=== PATIENT | female | born 1930 | race American Indian/Alaskan Native ===

== ENCOUNTER 2018-09-24 10:03 | Inpatient (IN) | payer MEDICARE ==
--- NOTE | 2018-09-24 10:07 | Emergency Department Report ---
HPI - General Time Seen by Provider: 09/24/18 10:06 - HPI HPI: Charge nurse triage/ Room 2 Patient's age 71-year-old female presenting with a chief complaint altered mental status. The patient reportedly came from adult daycare with report of left-sided weakness. Upon arrival to the ED the patient was found by the tele- neurologist to have shaking of the left upper extremity. Patient reported to have had a generalized tonic-clonic seizure in triage and is postictal at the time of my exam. 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 - Surgical History Additional Surgical History: "Brain tumor" removal 2001 - Family History Family history: no significant - Social History Smoking Status: Never Smoker Substance Use Type: None ED Review of Systems ROS: Stated complaint: AMS/POSSIBLE STROKE Other details as noted in HPI Comment: Unobtainable due to pts medical conditions Physical Exam - Physical Exam Vital Signs: Laboratory Tests 09/24/18 09/24/18 09/24/18 10:19 10:19 10:19 WBC 4.5 RBC 3.62 L Hgb 11.9 Hct 35.4 MCV 98 H MCH 33 H MCHC 34 RDW 13.4 Plt Count 188 Lymph % (Auto) 23.9 [place] % (Auto) 7.7 H Eos % (Auto) 2.5 Baso % (Auto) 0.9 Lymph # 1.1 L [place] # 0.3 Eos # 0.1 Baso # 0.0 Seg Neutrophils % 65.0 Seg Neutrophils # 2.9 PT 25.7 H INR 2.40 H APTT 30.4 Thrombin Time Sodium 141 Potassium 4.4 Chloride 103.4 Carbon Dioxide 21 L Anion Gap 21 BUN 13 Creatinine 1.3 H Estimated GFR 47 BUN/Creatinine Ratio 10 Glucose 128 H POC Glucose Calcium 9.7 Troponin T < 0.010 09/24/18 09/24/18 10:19 10:50 WBC RBC Hgb Hct MCV MCH MCHC RDW Plt Count Lymph % (Auto) [place] % (Auto) Eos % (Auto) Baso % (Auto) Lymph # [place] # Eos # Baso # Seg Neutrophils % Seg Neutrophils # PT INR APTT Thrombin Time 17.6 Sodium Potassium Chloride Carbon Dioxide Anion Gap BUN Creatinine Estimated GFR BUN/Creatinine Ratio Glucose POC Glucose 144 H Calcium Troponin T Physical Exam: GENERAL: The patient is well-developed well-nourished female lying on stretcher not appearing to be in acute distress. Stick to HEENT: Normocephalic. Atraumatic. Pupils 2 mm bilaterally NECK: Supple. Trachea midline CHEST/LUNGS: Clear to auscultation. There is no respiratory distress noted. HEART/CARDIOVASCULAR: Regular. There is no tachycardia. There is no gallop rub or murmur. ABDOMEN: Abdomen is soft, nontender. Patient has normal bowel sounds. There is no abdominal distention. SKIN: There is no rash. There is no edema. There is no diaphoresis. NEURO: The patient is postictal and unable to perform neurologic exam MUSCULOSKELETAL: There is no evidence of acute injury. ED Medical Decision Making - Lab Data Result diagrams: 09/24/18 10:19 09/24/18 10:19 - EKG Data -: EKG Interpreted by Me (EMS EKG) EKG shows normal: sinus rhythm Rate: normal - EKG Data When compared to previous EKG there are: previous EKG unavailable Interpretation: other (no ischemic changes seen) - Radiology Data Radiology results: report reviewed (CT head), image reviewed (CT head) [facility] [address] [place] [address] Cat Scan Report Signed Patient: ABRIL DUMONT MR#: [id number] : 1930 Acct:[id number] Age/Sex: 88 / F ADM Date: 09/24/18 Loc: ED Attending Dr: Ordering Physician: GIGI DELAROSA MD Date of Service: 09/24/18 Procedure(s): CT head/brain wo con Accession Number(s): [id number] cc: GIGI DELAROSA MD CT HEAD WITHOUT CONTRAST: HISTORY: Neuro deficits less than 6 hours or symptoms present upon waking, stroke. TECHNIQUE: Sequential CT images without contrast. FINDINGS: No comparison. Previous right craniotomy changes are identified. There is a large area of encephalomalacia throughout the posterior right frontal lobe suggesting previous surgery or trauma. Advanced volume loss and chronic white matter changes are also identified. No evidence for hemorrhage, mass, mass effect or extra axial fluid collection. The posterior fossa contents are unremarkable. The visualized sinuses and mastoid air cells are well-aerated. IMPRESSION: Chronic findings as detailed above. No acute intracranial process is identified. These findings were discussed with Dr. Delarosa in the emergency department at 1018 hrs. Transcribed By: TTR Dictated By: MIRIAM KELLY JR, MD Electronically Authenticated By: MIRIAM KELLY JR, MD Signed Date/Time: 09/24/18 1022 DD/ 1020 TD/TT: 09/24/18 1022 - Differential Diagnosis status epilepticus Critical care attestation.: If time is entered above; I have spent that time in minutes in the direct care of this critically ill patient, excluding procedure time. ED Disposition Clinical Impression: Status epilepticus Disposition: OP ADMIT IP TO THIS HOSP Is pt being admited?: Yes Does the pt Need Aspirin: Yes Condition: Fair Time of Disposition: 11:03 (hospitalist paged (Dr Ely))
[2018-09-24] MEDS ORDERED: ACTIVASE ONE (10:11)
[2018-09-24] MEDS ORDERED: ATIVAN IV ONE ×2 (10:20→10:23)
[2018-09-24] MEDS ORDERED: ATIVAN ONE ×2 (10:21→10:23)
[2018-09-24] MEDS: ASPIRIN PO ONE (10:23)
--- NOTE | 2018-09-24 10:27 | Cat Scan Report ---
CT HEAD WITHOUT CONTRAST: HISTORY: Neuro deficits less than 6 hours or symptoms present upon waking, stroke. TECHNIQUE: Sequential CT images without contrast. FINDINGS: No comparison. Previous right craniotomy changes are identified. There is a large area of encephalomalacia throughout the posterior right frontal lobe suggesting previous surgery or trauma. Advanced volume loss and chronic white matter changes are also identified. No evidence for hemorrhage, mass, mass effect or extra axial fluid collection. The posterior fossa contents are unremarkable. The visualized sinuses and mastoid air cells are well-aerated. IMPRESSION: Chronic findings as detailed above. No acute intracranial process is identified. These findings were discussed with Dr. Matias in the emergency department at 1018 hrs.
[2018-09-24 10:30] LABS: Basophils % (Auto) 0.9 % (0.0-1.8); Eosinophils # (Auto) 0.1 K/mm3 (0.0-0.4); Eosinophils % (Auto) 2.5 % (0.0-4.3); Hematocrit 35.4 % (30.3-42.9); Hemoglobin 11.9 gm/dl (10.1-14.3); Lymphocytes # (Auto) 1.1 K/mm3 (1.2-5.4); Lymphocytes % (Auto) 23.9 % (13.4-35.0); Mean Corpuscular HGB Conc 34 % (30-34); Mean Corpuscular Volume 98 fl (79-97); Monocytes # (Auto) 0.3 K/mm3 (0.0-0.8); Monocytes % (Auto) 7.7 % (0.0-7.3); Platelet Count 188 K/mm3 (140-440); Red Blood Count 3.62 M/mm3 (3.65-5.03); Red Cell Distribution Width 13.4 % (13.2-15.2)
[2018-09-24] MEDS ORDERED: KEPPRA 1,500 MG in D5W 100 ML IV ONE (10:30)
[2018-09-24 10:39] LABS: INR 2.4 (0.87-1.13)
[2018-09-24 10:40] LABS: Partial Thromboplastin Time 30.4 Sec. (24.2-36.6)
[2018-09-24 10:52] LABS: BUN/Creatinine Ratio 10; Blood Urea Nitrogen 13 mg/dL (7-17); Calcium 9.7 mg/dL (8.4-10.2); Hemolysis Index 2
--- NOTE | 2018-09-24 10:55 | Emergency Department Report ---
ED Neuro Deficit HPI - General Chief Complaint: Neuro Symptoms/Deficit Stated Complaint: AMS/POSSIBLE STROKE Time Seen by Provider: 09/24/18 10:06 Source: EMS Mode of arrival: Ambulatory Limitations: No Limitations - History of Present Illness Initial Comments: [facility] TeleNeurology Consult Services Impression: seizure. Frontal frontal focus. Now post ictal with worsened left sided weakness. Not a tpa candidate due to: seizure Does not meet LVO screening criteria (no aphasia, neglect, gaze deviation, dense hemiparesis, visual field deficits on exam); therefore, advanced imaging not recommended. Comments: [facility] contacted: [phone] [facility] at bedside: 1000 NIHSS assessment time: 1015 Recommendations: Ativan 2mg iv x 2 given with resolution of seizures Keppra 1500mg iv ordered to be given stat now Seizure precautions Telemetry Admit to icu Iv fluids ns inpatient neurology consultation Inpatient evaluation as per Neurology/ Internal Medicine Discussed with ED MD CC seizures History of Present Illness Patient is a 88 year old woman who was brought to the Ed for seizures. She was last seen at 930 normal and then started to have left arm clonic movements. 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 She takes low dose Tegretol for seizure control. She takes coumadin daily. Diagnostic: Ct head without contrast: right craniotomy site with right frontal encephalomalacia, no acute signs of stroke, per my read Medical Decision Making: - Extensive number of diagnosis or management options are considered above. - Extensive amount of complex data reviewed. - High risk of complication and/or morbidity or mortality are associated with differential diagnostic considerations above. - There may be Uncertain outcome and increased probability of prolonged functional impairment or high probability of severe prolonged functional impairment associated with some of these differential diagnosis. Medical Data Reviewed: 1.Data reviewed include clinical labs, radiology, Medical Tests; 2.Tests results discussed w/performing or interpreting physician; 3.Obtaining/reviewing old medical records; 4.Obtaining case history from another source; 5.Independent review of image, tracing or specimen. Patient was informed the Neurology Consult would happen via telehealth (remote video) and consented to receiving care in this manner. - Related Data Allergies/Adverse Reactions: Allergies Allergy/AdvReac Type Severity Reaction Status Date / Time No Known Allergies Allergy Unverified 09/24/18 10:10 ED Review of Systems ROS: Stated complaint: AMS/POSSIBLE STROKE Other details as noted in HPI ED Past Medical Hx - Past Medical History Previous Medical History?: Yes Hx Hypertension: Yes Hx CVA: Yes (residual R sided weakess) - Surgical History Past Surgical History?: No - Social History Smoking Status: Unknown if ever smoked Substance Use Type: None ED Neuro Physical Exam - General Limitations: No Limitations Suspected Stroke: No - NIHSS Assessment Interval: Baseline 1a. Level of Consciousness: resp stimuli/obtunded 1b. LOC Questions: answers no questions correctly 1c. LOC Commands: performs no tasks correctly 2. Best Gaze: normal 3. Visual: no visual loss 4. Facial Palsy: minor paralysis 5b. Motor Arm Right: some gravity effort 5a. Motor Arm Left: some gravity effort 6a. Motor Leg Left: some gravity effort 6b. Motor Leg Right: some gravity effort 7. Limb Ataxia: absent 8. Sensory: normal 9. Best Language: coma/unresponsive 10. Dysarthria: mute/anarrthric 11. Extinction/Inattention: no abnormality Total Score: 20 Stroke Severity: Moderate to Severe Stroke - Lab Data Result diagrams: 09/24/18 10:19 09/24/18 10:19 Lab Results 09/24/18 09/24/18 09/24/18 Range/Units 10:19 10:19 10:19 WBC 4.5 (4.5-11.0) K/mm3 RBC 3.62 L (3.65-5.03) M/mm3 Hgb 11.9 (10.1-14.3) gm/dl Hct 35.4 (30.3-42.9) % MCV 98 H (79-97) fl MCH 33 H (28-32) pg MCHC 34 (30-34) % RDW 13.4 (13.2-15.2) % Plt Count 188 (140-440) K/mm3 Lymph % (Auto) 23.9 (13.4-35.0) % [place] % (Auto) 7.7 H (0.0-7.3) % Eos % (Auto) 2.5 (0.0-4.3) % Baso % (Auto) 0.9 (0.0-1.8) % Lymph # 1.1 L (1.2-5.4) K/mm3 [place] # 0.3 (0.0-0.8) K/mm3 Eos # 0.1 (0.0-0.4) K/mm3 Baso # 0.0 (0.0-0.1) K/mm3 Seg Neutrophils % 65.0 (40.0-70.0) % Seg Neutrophils # 2.9 (1.8-7.7) K/mm3 PT 25.7 H (12.2-14.9) Sec. INR 2.40 H (0.87-1.13) APTT 30.4 (24.2-36.6) Sec. Thrombin Time (15.1-19.6) Sec. Sodium 141 (137-145) mmol/L Potassium 4.4 (3.6-5.0) mmol/L Chloride 103.4 (98-107) mmol/L Carbon Dioxide 21 L (22-30) mmol/L Anion Gap 21 mmol/L BUN 13 (7-17) mg/dL Creatinine 1.3 H (0.7-1.2) mg/dL Estimated GFR 47 ml/min BUN/Creatinine Ratio 10 % Glucose 128 H (65-100) mg/dL POC Glucose (70-105) Calcium 9.7 (8.4-10.2) mg/dL Troponin T < 0.010 (0.00-0.029) ng/mL 09/24/18 09/24/18 Range/Units 10:19 10:50 WBC (4.5-11.0) K/mm3 RBC (3.65-5.03) M/mm3 Hgb (10.1-14.3) gm/dl Hct (30.3-42.9) % MCV (79-97) fl MCH (28-32) pg MCHC (30-34) % RDW (13.2-15.2) % Plt Count (140-440) K/mm3 Lymph % (Auto) (13.4-35.0) % [place] % (Auto) (0.0-7.3) % Eos % (Auto) (0.0-4.3) % Baso % (Auto) (0.0-1.8) % Lymph # (1.2-5.4) K/mm3 [place] # (0.0-0.8) K/mm3 Eos # (0.0-0.4) K/mm3 Baso # (0.0-0.1) K/mm3 Seg Neutrophils % (40.0-70.0) % Seg Neutrophils # (1.8-7.7) K/mm3 PT (12.2-14.9) Sec. INR (0.87-1.13) APTT (24.2-36.6) Sec. Thrombin Time 17.6 (15.1-19.6) Sec. Sodium (137-145) mmol/L Potassium (3.6-5.0) mmol/L Chloride (98-107) mmol/L Carbon Dioxide (22-30) mmol/L Anion Gap mmol/L BUN (7-17) mg/dL Creatinine (0.7-1.2) mg/dL Estimated GFR ml/min BUN/Creatinine Ratio % Glucose (65-100) mg/dL POC Glucose 144 H (70-105) Calcium (8.4-10.2) mg/dL Troponin T (0.00-0.029) ng/mL Critical care attestation.: If time is entered above; I have spent that time in minutes in the direct care of this critically ill patient, excluding procedure time. ED Disposition Clinical Impression: Status epilepticus Disposition: OP ADMIT IP TO THIS HOSP Is pt being admited?: Yes Condition: Stable
--- NOTE | 2018-09-24 15:13 | History and Physical Report ---
History of Present Illness Date of examination: 09/24/18 Date of admission: 09/24/18 11:13 Medications and Allergies Allergies Allergy/AdvReac Type Severity Reaction Status Date / Time No Known Allergies Allergy Unverified 09/24/18 10:10 Home Medications Medication Instructions Recorded Confirmed Last Taken Type Acetaminophen [Tylenol] 500 mg PO BID 09/24/18 09/24/18 09/24/18 History Lovastatin [Altoprev] 20 mg PO QPM 09/24/18 09/24/18 09/23/18 History Nebivolol HCl [Bystolic] 10 mg PO QAM 09/24/18 09/24/18 09/24/18 History Warfarin [Coumadin] 5 mg PO QPM 09/24/18 09/24/18 09/23/18 History carBAMazepine XR [TEGretol Xr] 100 mg PO QAM 09/24/18 09/24/18 09/24/18 History Exam - Constitutional Vitals: Temp Pulse Resp BP Pulse Ox 98.4 F 62 16 168/63 100 09/24/18 11:13 09/24/18 13:01 09/24/18 13:01 09/24/18 13:31 09/24/18 13:31 Results - Labs CBC & Chem 7: 09/24/18 10:19 09/24/18 10:19 Labs: Abnormal lab results 09/24/18 09/24/18 09/24/18 Range/Units 10:19 10:19 10:19 RBC 3.62 L (3.65-5.03) M/mm3 MCV 98 H (79-97) fl MCH 33 H (28-32) pg [place] % (Auto) 7.7 H (0.0-7.3) % Lymph # 1.1 L (1.2-5.4) K/mm3 PT 25.7 H (12.2-14.9) Sec. INR 2.40 H (0.87-1.13) Carbon Dioxide 21 L (22-30) mmol/L Creatinine 1.3 H (0.7-1.2) mg/dL Glucose 128 H (65-100) mg/dL POC Glucose (70-105) 09/24/18 Range/Units 10:50 RBC (3.65-5.03) M/mm3 MCV (79-97) fl MCH (28-32) pg [place] % (Auto) (0.0-7.3) % Lymph # (1.2-5.4) K/mm3 PT (12.2-14.9) Sec. INR (0.87-1.13) Carbon Dioxide (22-30) mmol/L Creatinine (0.7-1.2) mg/dL Glucose (65-100) mg/dL POC Glucose 144 H (70-105)
[2018-09-24] MEDS ORDERED: DILAUDID ONE (17:13)
[2018-09-24] MEDS: DILAUDID IV PRN (17:31)
[2018-09-24] MEDS ORDERED: APRESOLINE ONE (18:04)
[2018-09-24] MEDS ORDERED: APRESOLINE IV ONE (18:05)
[2018-09-24] MEDS ORDERED: COUMADIN PO SCH (22:00)
[2018-09-24] MEDS ORDERED: PRAVACHOL PO SCH (22:00)
[2018-09-24] MEDS ORDERED: NACL 0.9% 1000 ML 1,000 ML ONE (22:59)
[2018-09-24] MEDS: KEPPRA 1,000 MG in D5W 100 ML IV SCH (23:00)
[2018-09-24] MEDS: NACL 0.9% 1000 ML 1,000 ML IV SCH (23:00)
[2018-09-24] MEDS: TYLENOL PO SCH (23:09)
--- NOTE | 2018-09-25 06:35 | Event Note ---
Date: 09/24/18 Please H/p in reports Status epilepticus
[2018-09-25] MEDS: KEPPRA 1,000 MG in D5W 100 ML IV SCH ×2 (09:39→23:06)
[2018-09-25] MEDS ORDERED: TOPROL XL PO SCH (10:00)
[2018-09-25] MEDS ORDERED: NON-FORMULARY (Nebivolol Hcl [Bystolic] 10 MG) PO SCH (10:00)
--- NOTE | 2018-09-25 10:03 | History and Physical Report ---
CHIEF COMPLAINT: Continued seizures. HISTORY OF PRESENT ILLNESS: An 88-year-old female brought in for altered mental status from [facility]. Complains of left-sided weakness. Also shaking of the left upper extremity continuously. The patient had a generalized tonic-clonic seizure in the triage area and was postictal at the time of my exam. No fever or chills. The patient had a brain tumor removal in 2001 with residual weakness on the left side. The patient has history of seizures. The patient is on Tegretol for seizures. Not on Keppra. PAST MEDICAL HISTORY: Significant for hypertension, seizures, left-sided weakness after the brain tumor removal in 2001. SURGICAL HISTORY: Brain tumor removal in 2001. FAMILY HISTORY: No significant family history. SOCIAL HISTORY: Does not smoke. Daughter is supportive. REVIEW OF SYSTEMS: Significant for recurrent seizures and left-sided weakness and altered sensorium. Otherwise, review of systems negative. PHYSICAL EXAMINATION: GENERAL: Elderly female, lethargic, altered sensorium. VITAL SIGNS: Temperature 98.2, pulse is 93, respiratory rate is 27, blood pressure is 187/76. HEENT: Unremarkable. Pupils are equal and reactive. NECK: Supple, no lymphadenopathy, no thyromegaly. LUNGS: Clear to auscultation and percussion. Good air entry. CARDIOVASCULAR: S1, S2 heard. No gallop, no murmur, no rub. Apical impulse in left fifth intercostal space and midclavicular line. ABDOMEN: Soft and benign. No hepatosplenomegaly. No guarding, no rigidity. Hernial orifices are normal. EXTREMITIES: Left upper extremity weakness and left lower extremity weakness present, 4/5 power present. CENTRAL NERVOUS SYSTEM: Lethargic. Returning to baseline during my examination. Trying to sleep. Postictal state. SKIN: Normal. LABORATORY DATA: Significant for a white count of 4500, H and H of 11.9 and 35.4, platelet count of 188,000. INR is 2.4. Electrolytes are normal, creatinine is 1.3, glucose is 120. CAT scan of the head shows chronic findings of previous right craniotomy changes and large area of encephalomalacia throughout the posterior right frontal lobe suggesting. Advanced volume loss and chronic white matter changes. ASSESSMENT AND PLAN: 1. Status epilepticus. The patient initiated on intravenous Keppra 1000, q.12 and carbamazepine dosage adjusted upwards. The patient was given a loading dose of Keppra 1500 mg in the Emergency Room on the suggestion of tele neurologist. Ativan given as p.r.n. 2. Anticoagulation. Continue Coumadin. 3. Hypertension. Continue Bystolic 10 mg daily. 4. Hyperlipidemia. Continue lovastatin. 5. Deep venous thrombosis prophylaxis. Lovenox 30 mg subcutaneous daily. 6. Acute kidney injury. Intravenous fluids.Sec to vasomotor nephropathy. JOB# [id number] BELINDA/SIENNA JOLLYD
[2018-09-25 10:10] LABS: INR 2.41 (0.87-1.13)
[2018-09-25] MEDS: TYLENOL PO SCH ×2 (10:53→23:07)
[2018-09-25] MEDS: NACL 0.9% 1000 ML 1,000 ML IV SCH (14:41)
[2018-09-25] MEDS ORDERED: KEPPRA PO SCH (15:00)
[2018-09-25] MEDS ORDERED: COUMADIN PO SCH (17:00)
[2018-09-25] MEDS: CATAPRES-TTS PATCH TD SCH (17:50)
[2018-09-25] MEDS ORDERED: NON-FORMULARY (Lovastatin [Altoprev] 20 MG) PO SCH (18:00)
--- NOTE | 2018-09-25 22:03 | Progress Note ---
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 Had also generalized chronic chronic seizure and is trying to area associated with him post icterus. No fever no chills. Had excision of right-sided brain tumor in 2001. Has been only on Tegretol. My supervision was given loading dose of 1500 of Keppra. Admitted for further evaluation and management. 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 INR is therapeutic for now. Hold Lovenox continue with SCDs. Commence Pepcid Subjective Date of service: 09/25/18 Principal diagnosis: status epilepticus, hypertension, hyperlipidemia, acute kidney injury. Interval history: Patient seen and examined. No distress. No further seizure activity Objective - Exam Narrative Exam: Constitutional: Well-nourished well-developed. In no distress Head: Normocephalic atraumatic Eyes: Pupils are equal round and reactive to light Nose: No enlarged turbinates, no septal deviation. Mouth: Moist mucous membranes. Neck: Supple no thyromegaly. No bruit. No JVD Heart: Regular rate and rhythm, S1-S2 normal. No rubs murmurs or gallop Lungs: Clear to auscultation bilaterally. no rales or rhonchi Abdomen: Soft, nontender. Bowel sound are present. Extremities: No edema, no cyanosis, no clubbing. Neuro: Alert oriented Oriented x3. No focal sensory or motor deficit. Skin: No rashes or hyperpigmented spots Musculoskeletal system: No joint pain or swelling Hematological: No petechia or subcutanous hemorrhages. Immunological: No multiple septic spots on the skin Lymphatic: No generalized lymphadenopathy Psychiatry: Euthymic. Calm. - Constitutional Vitals: Vital Signs - 12hr 09/25/18 09/25/18 09/25/18 10:42 12:23 17:16 Temperature 98.0 F 99.3 F Pulse Rate 71 79 Respiratory 20 20 Rate Blood Pressure 165/59 160/62 O2 Sat by Pulse 100 100 88 Oximetry 09/25/18 09/25/18 17:50 21:19 Temperature Pulse Rate 79 Respiratory Rate Blood Pressure 160/62 O2 Sat by Pulse 92 Oximetry - Labs CBC & Chem 7: 09/24/18 10:19 09/24/18 10:19 Labs: Abnormal lab results 09/25/18 Range/Units 08:18 PT 25.8 H (12.2-14.9) Sec. INR 2.41 H (0.87-1.13)
[2018-09-25] MEDS: LOVENOX SUB-Q SCH (23:06)
[2018-09-26 06:58] LABS: Basophils # (Auto) 0.1 K/mm3 (0.0-0.1); Eosinophils # (Auto) 0.1 K/mm3 (0.0-0.4); Eosinophils % (Auto) 2.1 % (0.0-4.3); Hemoglobin 10.6 gm/dl (10.1-14.3); Lymphocytes # (Auto) 0.7 K/mm3 (1.2-5.4); Lymphocytes % (Auto) 12.4 % (13.4-35.0); Mean Corpuscular HGB Conc 34 % (30-34); Mean Corpuscular Volume 96 fl (79-97); Monocytes # (Auto) 0.5 K/mm3 (0.0-0.8); Monocytes % (Auto) 9.6 % (0.0-7.3); Platelet Count 162 K/mm3 (140-440); Red Blood Count 3.22 M/mm3 (3.65-5.03)
[2018-09-26 07:10] LABS: INR 2.44 (0.87-1.13)
[2018-09-26 07:41] LABS: Albumin 3.2 g/dL (3.9-5); Calcium 9.2 mg/dL (8.4-10.2)
--- NOTE | 2018-09-26 09:43 | Progress Note ---
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 Had also generalized chronic chronic seizure and is trying to area associated with him post icterus. No fever no chills. Had excision of right-sided brain tumor in 2001. Has been only on Tegretol. My supervision was given loading dose of 1500 of Keppra. Admitted for further evaluation and management. 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 INR is therapeutic for now. Hold Lovenox continue with SCDs. Commence Pepcid Subjective Date of service: 09/26/18 Principal diagnosis: status epilepticus, hypertension, hyperlipidemia, acute kidney injury. Interval history: Patient seen and examined. No distress. No further seizure activity. Lying quietly in bed Objective - Exam Narrative Exam: Constitutional: Well-nourished well-developed. In no distress Head: Normocephalic atraumatic Eyes: Pupils are equal round and reactive to light Nose: No enlarged turbinates, no septal deviation. Mouth: Moist mucous membranes. Neck: Supple no thyromegaly. No bruit. No JVD Heart: Regular rate and rhythm, S1-S2 normal. No rubs murmurs or gallop Lungs: Clear to auscultation bilaterally. no rales or rhonchi Abdomen: Soft, nontender. Bowel sound are present. Extremities: No edema, no cyanosis, no clubbing. Neuro: Alert oriented Oriented x3. No focal sensory or motor deficit. Skin: No rashes or hyperpigmented spots Musculoskeletal system: No joint pain or swelling Hematological: No petechia or subcutanous hemorrhages. Immunological: No multiple septic spots on the skin Lymphatic: No generalized lymphadenopathy Psychiatry: Euthymic. Calm. - Constitutional Vitals: Vital Signs - 12hr 09/25/18 09/25/18 09/26/18 23:00 23:39 02:04 Temperature 100.0 F H Pulse Rate 90 Respiratory 18 20 Rate Blood Pressure 162/89 175/69 O2 Sat by Pulse 100 91 Oximetry 09/26/18 09/26/18 06:09 08:36 Temperature 99.9 F H Pulse Rate 83 Respiratory 20 Rate Blood Pressure 161/57 O2 Sat by Pulse 88 93 Oximetry - Labs CBC & Chem 7: 09/26/18 06:10 09/26/18 06:40 Labs: Abnormal lab results 09/25/18 09/26/18 09/26/18 Range/Units 08:18 06:10 06:40 RBC 3.22 L (3.65-5.03) M/mm3 MCH 33 H (28-32) pg RDW 13.0 L (13.2-15.2) % Lymph % (Auto) 12.4 L (13.4-35.0) % [place] % (Auto) 9.6 H (0.0-7.3) % Lymph # 0.7 L (1.2-5.4) K/mm3 Seg Neutrophils % 74.9 H (40.0-70.0) % PT 25.8 H 26.0 H (12.2-14.9) Sec. INR 2.41 H 2.44 H (0.87-1.13) Chloride (98-107) mmol/L Phosphorus (2.5-4.5) mg/dL Magnesium (1.7-2.3) mg/dL Albumin (3.9-5) g/dL 09/26/18 Range/Units 06:40 RBC (3.65-5.03) M/mm3 MCH (28-32) pg RDW (13.2-15.2) % Lymph % (Auto) (13.4-35.0) % [place] % (Auto) (0.0-7.3) % Lymph # (1.2-5.4) K/mm3 Seg Neutrophils % (40.0-70.0) % PT (12.2-14.9) Sec. INR (0.87-1.13) Chloride 108.4 H (98-107) mmol/L Phosphorus 2.40 L (2.5-4.5) mg/dL Magnesium 1.30 L (1.7-2.3) mg/dL Albumin 3.2 L (3.9-5) g/dL
[2018-09-26] MEDS ORDERED: MAGNESIUM SULFATE 2GM/50ML 2 GM/50 ML BAG IV ONE ×2 (09:45→11:00)
--- NOTE | 2018-09-26 10:04 | XRay Report ---
AP CHEST: HISTORY: Fever No comparison. Mild to moderate cardiomegaly is evident. Pulmonary vessels are within normal limits. There are moderate aortic calcifications. The lungs are grossly clear. No evidence for infiltrate, large pleural effusion or pneumothorax. IMPRESSION: Cardiomegaly.
[2018-09-26] MEDS: KEPPRA 1,000 MG in D5W 100 ML IV SCH ×2 (11:20→23:32)
[2018-09-26] MEDS: D5NS 1,000 ML IV SCH ×2 (11:20→23:32)
[2018-09-26] MEDS ORDERED: SIMPLE SYRUP FEEDTUBE PRN ×2 (13:05)
[2018-09-26] MEDS ORDERED: PANCREAZE DR 10,500 UNIT FEEDTUBE PRN (13:05)
[2018-09-26] MEDS ORDERED: SODIUM BICARBONATE FEEDTUBE PRN (13:05)
[2018-09-26 13:45] LABS: Bacteria,Urine 1+ /HPF (Negative); Bilirubin,Urine NEG (Negative); Blood,Urine SM (Negative); Color,Urine Yellow (Yellow); Urobilinogen,Urine < 2.0 mg/dL (<2.0)
--- NOTE | 2018-09-26 13:51 | XRay Report ---
AP ABDOMEN: HISTORY: Dobbhoff tube placement. The Dobbhoff tube terminates in the antrum of the stomach. The abdominal gas pattern is unremarkable. No masses or organomegaly is identified and there is no gross evidence of free air or fluid. No significant soft tissue calcifications are noted. IVC filter is in place at the L2-3 level. IMPRESSION: Unremarkable abdomen. Dobbhoff tube terminates in the distal stomach.
[2018-09-26] MEDS: ASPIRIN PO ONE (14:02)
[2018-09-26] MEDS: TYLENOL PO SCH ×2 (14:21→22:25)
[2018-09-26] MEDS: PHOS-NAK PO SCH ×2 (14:22→22:24)
[2018-09-26] MEDS: NORVASC PO SCH (14:22)
--- NOTE | 2018-09-26 21:39 | Consultation ---
History of Present Illness Consult date: 09/26/18 Requesting physician: EBRNARDA BLANK Reason for Consult: seizure Chief complaint: seizure History of present illness: This 88-year-old right-handed -N[place]ian female according to her daughter who arrived after I finished examining the patient, has been on only 100 mg generic Tegretol extended release daily probably for some years without any seizures. 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 The seizure occurred Monday at the home of the daughter described as focal motor activity on the left. Magnesium was 1.3 for which she was given 2 g magnesium sulfate. She was not having any diarrhea or vomiting but was using glycerin suppository daily for constipation. 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 She was loaded with levetiracetam and started on 1000 mg intravenously every 12 hours. I explained that unlike carbamazepine which can lower INR from warfarin, levetiracetam does not affect warfarin. Her daughter states that the patient spends 6 or so months in rotation with her children in different states but is been in this area since February though is going to be going to [facility] soon, where her craniotomy was done in 2001. Her daughter is not aware of any previous planned taper of medication. Past medical history: Medical illnesses: Meningioma apparently, dementia Surgeries: Craniotomy 2001 Social history: No tobacco or alcohol or illicit drugs. Patient acknowledges she was in special education when younger. 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 Family history: Stroke in one daughter, O brain aneurysm, no epilepsy, hyp ertension in siblings and all of her children, no diabetes. Review of systems: No headaches recently according to her daughter and no dizziness complaints, some snoring but not loud but no pauses noted. Poor short-term memory since the 1999 to surgery but okay remote memory. No paresthesias. General appearance: Well-developed but overweight lady 80s -Nigerian female in no acute distress with nasal feeding tube, in 4 point restraints. HEENT: Right frontal craniotomy incision scars. Normocephalic, no bruits. Neck: No bruits, supple. Heart: No murmur or extra sounds. Extremities: Cannot feel dorsalis pedis or posterior tibial pulses on either side, no edema. Neurologic exam: Mental status: Awake alert, gives the month is August and perseverates with that answer, cannot give the after 1999 prompt, says she's in [place] at [facility] and that the season is Spring and the day as Monday (2 days off). Gives President after first name prompt but cannot give Vice Pre sident. Cannot attempt 3 of 3 objects. Cannot attempt calculations and cannot even give 2+2. Cannot attempt to spell WORLD or do abstractions or do a right- left task. Names comb and pen but not their parts. Cranial nerves: Seems to have a left superior quadrant, fundi are intact, PERRL, EOMs full without nystagmus, facial sensation is intact, no facial weakness, Castañeda is midline, palate rises symmetrically in the midline with positive gags, shrug is 5 right and 3- on the left. Tongue protrudes in the midline. Cerebellar: Finger-nose is intact on the right but cannot reach nose on the left due to hemiparesis. Apraxic for attempt to do [id number]. Sensory exam: Light touch is decreased on the left side, pinprick is diminished in the left leg, no vibrations the left foot, cannot cooperate for double simultaneous stimulation. Motor exam upper extremities: Mild static left drift, sheriff deputy are 5 right and 4+ left, greatly increased tone on the left. Apraxic for rapid alternating moveme nts. Motor exam lower extremities: Lifts right leg off the bed some spontaneously but cannot lift the left. Iliopsoas is 4+ right and 3+ left, quadriceps is 5 right and 3- left, anterior tibial is 4+ on the right and 3+ left, gastrocnemius is 5 right and 4+ left. Tone is increased on the left. Apraxic for rapid alternating movements. Reflexes: Palmomental is positive on the right more than left, snout is positive and jaw jerk is positive. Triceps are 2+ to 3 on the right and 3+ left, biceps are 2+ right and 3+ left and brachioradialis are 2+ right and 3 left. Keller's is negative bilaterally. Knee jerks and ankle jerks are 0 bilaterally with reinforcement and without clonus. Toes are downgoing on the right and upgoing on the left to Babinski testing. Medications and Allergies Allergies Allergy/AdvReac Type Severity Reaction Status Date / Time No Known Allergies Allergy Unverified 09/24/18 10:10 Home Medications Medication Instructions Recorded Confirmed Last Taken Type Acetaminophen [Tylenol] 500 mg PO BID 09/24/18 09/24/18 09/24/18 History Lovastatin [Altoprev] 20 mg PO QPM 09/24/18 09/24/18 09/23/18 History Nebivolol HCl [Bystolic] 10 mg PO QAM 09/24/18 09/24/18 09/24/18 History Warfarin [Coumadin] 5 mg PO QPM 09/24/18 09/24/18 09/23/18 History carBAMazepine XR [TEGretol Xr] 100 mg PO QAM 09/24/18 09/24/18 09/24/18 History Active Meds: Active Medications Acetaminophen (Tylenol) 500 mg PO BID [facility] Last Admin: 09/26/18 14:21 Dose: 500 mg Documented by: Amlodipine Besylate (Norvasc) 10 mg PO QDAY [facility] Last Admin: 09/26/18 14:22 Dose: 10 mg Documented by: Lipase/Protease/Amylase (Pancreaze Dr 10,500 Unit) 1 each FEEDTUBE PRN PRN PRN Reason: For Clogged Feeding Tube Carbamazepine (Tegretol Xr) 100 mg PO Q12H [facility] Last Admin: 09/26/18 14:22 Dose: Not Given Documented by: Clonidine HCl (Catapres-Tts Patch) 0.2 mg TD QWEEK [facility] Last Admin: 09/25/18 17:50 Dose: 0.2 mg Documented by: Enoxaparin Sodium (Lovenox) 40 mg SUB-Q QDAY@2200 [facility] Last Admin: 09/25/18 23:06 Dose: 40 mg Documented by: Hydromorphone HCl (Dilaudid) 0.5 mg IV Q4H PRN PRN Reason: Pain , Severe (7-10) Last Admin: 09/24/18 17:31 Dose: 0.5 mg Documented by: Levetiracetam 1,000 mg/ (Dextrose) 110 mls @ 400 mls/hr IV Q12HR [facility] Last Admin: 09/26/18 11:20 Dose: 400 mls/hr Documented by: Dextrose/Sodium Chloride (D5ns) 1,000 mls @ 100 mls/hr IV DIRECT [facility] Last Admin: 09/26/18 11:20 Dose: 100 mls/hr Documented by: Potassium Phos/Sodium Phos (Phos-Nak) 1 each PO Q12HR [facility] Last Admin: 09/26/18 14:22 Dose: 1 each Documented by: Simple Syrup (Simple Syrup) 15 ml FEEDTUBE PRN PRN PRN Reason: Hypoglycemia Simple Syrup (Simple Syrup) 30 ml FEEDTUBE PRN PRN PRN Reason: Hypoglycemia Sodium Bicarbonate (Sodium Bicarbonate) 325 mg FEEDTUBE PRN PRN PRN Reason: For Clogged Feeding Tube Physical Examination - Vital Signs Vital Signs: Vital Signs Pulse Ox 100 09/24/18 10:30 Results - Laboratory Findings CBC and BMP: 09/26/18 06:10 09/26/18 06:40 Abnormal Lab Findings: Abnormal Labs 09/24/18 09/24/18 09/24/18 10:19 10:19 10:19 RBC 3.62 L MCV 98 H MCH 33 H RDW Lymph % (Auto) Mckenzie % (Auto) 7.7 H Lymph # 1.1 L Seg Neutrophils % PT 25.7 H INR 2.40 H Chloride Carbon Dioxide 21 L Creatinine 1.3 H Glucose 128 H POC Glucose Phosphorus Magnesium Albumin 09/24/18 09/25/18 09/26/18 10:50 08:18 06:10 RBC 3.22 L MCV MCH 33 H RDW 13.0 L Lymph % (Auto) 12.4 L Mckenzie % (Auto) 9.6 H Lymph # 0.7 L Seg Neutrophils % 74.9 H PT 25.8 H INR 2.41 H Chloride Carbon Dioxide Creatinine Glucose POC Glucose 144 H Phosphorus Magnesium Albumin 09/26/18 09/26/18 06:40 06:40 RBC MCV MCH RDW Lymph % (Auto) Mckenzie % (Auto) Lymph # Seg Neutrophils % PT 26.0 H INR 2.44 H Chloride 108.4 H Carbon Dioxide Creatinine Glucose POC Glucose Phosphorus 2.40 L Magnesium 1.30 L Albumin 3.2 L Assessment and Plan Impression: 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 Memory loss Plan: 1. Continue with Keppra. Could later stop carbamazepine once levetiracetam is therapeutic. 2. I explained to her daughter that it is very unlikely she could come off antiepileptic drug therapy due to extensive damage on the right from tumor and surgery. 3. I explained her worsened left weakness should be temporary if from seizure. If not better in a few days, should get brain MRI to look for another cause, such as a stroke, which could also cause seizures. 4. Will give 200 mg B6 daily to help prevent irritability from Keppra. 70 min spent including extensive history from daughter (and apparently brother on the phone). Thank you for an interesting consultation in my area of subspecialty on this unfortunate late 80's lady. Signing off, call for any questions or problems.
[2018-09-26] MEDS: LOVENOX SUB-Q SCH (22:25)
--- NOTE | 2018-09-27 07:00 | XRay Report ---
PROCEDURE: XR ABDOMEN 1V AP TECHNIQUE: Abdominal radiograph, single view. HISTORY: conform NG tube position COMPARISONS: 09/26/2018 . FINDINGS: Nasogastric tube tip projects over the distal stomach. An IVC filter is present. No evident pneumoper itoneum. IMPRESSION: Nasogastric tube tip in the stomach is similar in appearance compared to 09/26/2018 This document is electronically signed by Lewis Ward MD., September 27 2018 06:58:39 AM ET
--- NOTE | 2018-09-27 08:04 | Progress Note ---
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 Had also generalized chronic chronic seizure and is trying to area associated with him post icterus. No fever no chills. Had excision of right-sided brain tumor in 2001. Has been only on Tegretol. My supervision was given loading dose of 1500 of Keppra. Admitted for further evaluation and management. - Status epilepticus Continue with IV Keppra and carbamazepine Seizure precaution Neurology consulted. Input appreciated - Fever - resolved CXR showed cardiomegaly. 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 INR is therapeutic for now. Hold Lovenox continue with SCDs. Commence Pepcid - Discussed at length with pt daughter. - code status: full code - Disposition: per clinical course Subjective Date of service: 09/27/18 Principal diagnosis: status epilepticus, hypertension, hyperlipidemia, acute kidney injury. Interval history: Patient seen and examined. MOre alert. Pt's daughter in the room. No further seizure activity. Lying quietly in bed. NGT in place Objective - Exam Narrative Exam: Constitutional: Well-nourished well-developed. In no distress. opens eye to verbal command Head: Normocephalic atraumatic Eyes: Pupils are equal round and reactive to light Nose: No enlarged turbinates, no septal deviation. Mouth: Moist mucous membranes. Neck: Supple no thyromegaly. No bruit. No JVD Heart: Regular rate and rhythm, S1-S2 normal. No rubs murmurs or gallop Lungs: Clear to auscultation bilaterally. no rales or rhonchi Abdomen: Soft, nontender. Bowel sound are present. Extremities: No edema, no cyanosis, no clubbing. Neuro: Alert oriented Oriented x1. No focal sensory or motor deficit. Skin: No rashes or hyperpigmented spots Musculoskeletal system: No joint pain or swelling Hematological: No petechia or subcutanous hemorrhages. Immunological: No multiple septic spots on the skin Lymphatic: No generalized lymphadenopathy Psychiatry: Euthymic. Calm. - Constitutional Vitals: Vital Signs - 12hr 09/26/18 09/26/18 09/26/18 22:00 22:25 23:27 Temperature 98.7 F Pulse Rate 72 Respiratory 16 22 Rate Blood Pressure 152/56 O2 Sat by Pulse 96 97 Oximetry 09/27/18 06:10 Temperature 98.9 F Pulse Rate 60 Respiratory 19 Rate Blood Pressure 145/54 O2 Sat by Pulse 97 Oximetry - Labs CBC & Chem 7: 09/26/18 06:10 09/26/18 06:40 Labs: Abnormal lab results 09/27/18 Range/Units 06:40 POC Glucose 123 H (70-105)
[2018-09-27] MEDS: TYLENOL PO SCH ×2 (10:07→22:46)
[2018-09-27] MEDS: PHOS-NAK PO SCH ×2 (10:07→22:52)
[2018-09-27] MEDS: NORVASC PO SCH (10:08)
[2018-09-27] MEDS: KEPPRA 1,000 MG in D5W 100 ML IV SCH ×2 (10:10→22:50)
[2018-09-27 10:48] LABS: INR 2.26 (0.87-1.13)
[2018-09-27 11:32] LABS: Basophils % (Auto) 0.7 % (0.0-1.8); Eosinophils # (Auto) 0.1 K/mm3 (0.0-0.4); Hematocrit 31.1 % (30.3-42.9); Hemoglobin 10.3 gm/dl (10.1-14.3); Lymphocytes # (Auto) 0.7 K/mm3 (1.2-5.4); Mean Corpuscular HGB Conc 33 % (30-34); Mean Corpuscular Volume 96 fl (79-97); Monocytes # (Auto) 0.6 K/mm3 (0.0-0.8); Platelet Count 147 K/mm3 (140-440); Red Blood Count 3.23 M/mm3 (3.65-5.03); Red Cell Distribution Width 13.5 % (13.2-15.2)
[2018-09-27 11:40] LABS: Albumin 2.9 g/dL (3.9-5); Calcium 9.4 mg/dL (8.4-10.2)
[2018-09-27] MEDS: D5NS 1,000 ML IV SCH (16:25)
[2018-09-27] MEDS: LOVENOX SUB-Q SCH (22:47)
[2018-09-28] MEDS ORDERED: APRESOLINE IV PRN (00:50)
[2018-09-28 06:36] LABS: Basophils % (Auto) 0.4 % (0.0-1.8); Eosinophils # (Auto) 0.2 K/mm3 (0.0-0.4); Hematocrit 29.2 % (30.3-42.9); Hemoglobin 9.8 gm/dl (10.1-14.3); Lymphocytes # (Auto) 0.6 K/mm3 (1.2-5.4); Lymphocytes % (Auto) 11.3 % (13.4-35.0); Mean Corpuscular HGB Conc 34 % (30-34); Mean Corpuscular Volume 97 fl (79-97); Monocytes # (Auto) 0.6 K/mm3 (0.0-0.8); Platelet Count 148 K/mm3 (140-440); Red Blood Count 3.02 M/mm3 (3.65-5.03); Red Cell Distribution Width 12.8 % (13.2-15.2)
[2018-09-28 06:48] LABS: INR 1.69 (0.87-1.13)
[2018-09-28 07:04] LABS: Alanine Aminotransferase 11 units/L (7-56); Albumin 2.8 g/dL (3.9-5); BUN/Creatinine Ratio 12; Blood Urea Nitrogen 12 mg/dL (7-17); Calcium 9.2 mg/dL (8.4-10.2); Hemolysis Index 4
--- NOTE | 2018-09-28 08:19 | Progress Note ---
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 Had also generalized chronic chronic seizure and is trying to area associated with him post icterus. No fever no chills. Had excision of right-sided brain tumor in 2001. Has been only on Tegretol. My supervision was given loading dose of 1500 of Keppra. Admitted for further evaluation and management. - Status epilepticus Continue with IV Keppra and carbamazepine Seizure precaution Neurology consulted. Input appreciated - Oropharyngeal dysphagia Stillhas NGT in place For repeat swallowing eval today by speech If still not tolerating, Consider PEG - Fever - resolved CXR showed cardiomegaly. 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 INR is therapeutic for now. Hold Lovenox continue with SCDs. Commence Pepcid - Discussed at length with pt daughter. - code status: full code - Disposition: per clinical course Discussed with pt's daughter in the room Subjective Date of service: 09/28/18 Principal diagnosis: status epilepticus, hypertension, hyperlipidemia, acute kidney injury. Interval history: Patient seen and examined. More alert. Pt's daughter in the room. No further seizure activity. Lying quietly in bed. NGT in place Objective - Exam Narrative Exam: Constitutional: Well-nourished well-developed. In no distress. Opens eye to verbal command Head: Normocephalic atraumatic Eyes: Pupils are equal round and reactive to light Nose: No enlarged turbinates, no septal deviation. Mouth: Moist mucous membranes. Neck: Supple no thyromegaly. No bruit. No JVD Heart: Regular rate and rhythm, S1-S2 normal. No rubs murmurs or gallop Lungs: Clear to auscultation bilaterally. no rales or rhonchi Abdomen: Soft, nontender. Bowel sound are present. Extremities: No edema, no cyanosis, no clubbing. Neuro: Alert oriented Oriented x1. No focal sensory or motor deficit. Skin: No rashes or hyperpigmented spots Musculoskeletal system: No joint pain or swelling Hematological: No petechia or subcutanous hemorrhages. Immunological: No multiple septic spots on the skin Lymphatic: No generalized lymphadenopathy Psychiatry: Euthymic. Calm. - Constitutional Vitals: Vital Signs - 12hr 09/27/18 09/27/18 09/27/18 22:00 22:46 23:46 Pulse Rate 78 Respiratory 19 17 Rate - Labs CBC & Chem 7: 09/30/18 09:00 09/30/18 09:00 Labs: Abnormal lab results 09/27/18 09/27/18 09/27/18 Range/Units 09:48 09:48 10:43 RBC 3.23 L (3.65-5.03) M/mm3 Hgb (10.1-14.3) gm/dl Hct (30.3-42.9) % RDW (13.2-15.2) % Lymph % (Auto) 13.0 L (13.4-35.0) % [place] % (Auto) 11.0 H (0.0-7.3) % Lymph # 0.7 L (1.2-5.4) K/mm3 Seg Neutrophils % 73.3 H (40.0-70.0) % PT 24.5 H (12.2-14.9) Sec. INR 2.26 H (0.87-1.13) Chloride 108.0 H (98-107) mmol/L Carbon Dioxide 20 L (22-30) mmol/L Glucose 140 H (65-100) mg/dL POC Glucose (70-105) Albumin 2.9 L (3.9-5) g/dL 09/27/18 09/27/18 09/27/18 Range/Units 11:24 16:40 20:42 RBC (3.65-5.03) M/mm3 Hgb (10.1-14.3) gm/dl Hct (30.3-42.9) % RDW (13.2-15.2) % Lymph % (Auto) (13.4-35.0) % [place] % (Auto) (0.0-7.3) % Lymph # (1.2-5.4) K/mm3 Seg Neutrophils % (40.0-70.0) % PT (12.2-14.9) Sec. INR (0.87-1.13) Chloride (98-107) mmol/L Carbon Dioxide (22-30) mmol/L Glucose (65-100) mg/dL POC Glucose 177 H 142 H 160 H (70-105) Albumin (3.9-5) g/dL 09/27/18 09/28/18 09/28/18 Range/Units 23:49 06:03 06:19 RBC (3.65-5.03) M/mm3 Hgb (10.1-14.3) gm/dl Hct (30.3-42.9) % RDW (13.2-15.2) % Lymph % (Auto) (13.4-35.0) % Davison % (Auto) (0.0-7.3) % Lymph # (1.2-5.4) K/mm3 Seg Neutrophils % (40.0-70.0) % PT 19.5 H (12.2-14.9) Sec. INR 1.69 H (0.87-1.13) Chloride (98-107) mmol/L Carbon Dioxide (22-30) mmol/L Glucose (65-100) mg/dL POC Glucose 161 H 169 H (70-105) Albumin (3.9-5) g/dL 09/28/18 09/28/18 Range/Units 06:19 06:19 RBC 3.02 L (3.65-5.03) M/mm3 Hgb 9.8 L (10.1-14.3) gm/dl Hct 29.2 L (30.3-42.9) % RDW 12.8 L (13.2-15.2) % Lymph % (Auto) 11.3 L (13.4-35.0) % Davison % (Auto) 11.0 H (0.0-7.3) % Lymph # 0.6 L (1.2-5.4) K/mm3 Seg Neutrophils % 74.3 H (40.0-70.0) % PT (12.2-14.9) Sec. INR (0.87-1.13) Chloride (98-107) mmol/L Carbon Dioxide (22-30) mmol/L Glucose 134 H (65-100) mg/dL POC Glucose (70-105) Albumin 2.8 L (3.9-5) g/dL
[2018-09-28] MEDS: NORVASC PO SCH (10:24)
[2018-09-28] MEDS: PHOS-NAK PO SCH ×2 (10:24→22:01)
[2018-09-28] MEDS: TYLENOL PO SCH ×2 (10:28→22:01)
[2018-09-28] MEDS: KEPPRA 1,000 MG in D5W 100 ML IV SCH ×2 (10:29→22:01)
[2018-09-28] MEDS: DILAUDID IV PRN (12:18)
[2018-09-28] MEDS: D5NS 1,000 ML IV SCH (15:26)
[2018-09-28] MEDS: LOVENOX SUB-Q SCH (22:02)
[2018-09-29] MEDS: D5NS 1,000 ML IV SCH (00:43)
[2018-09-29 06:19] LABS: INR 1.27 (0.87-1.13)
[2018-09-29] MEDS: KEPPRA 1,000 MG in D5W 100 ML IV SCH ×2 (10:21→21:13)
[2018-09-29] MEDS: PHOS-NAK PO SCH ×2 (10:31→21:13)
[2018-09-29] MEDS: NORVASC PO SCH (10:32)
[2018-09-29] MEDS: TYLENOL PO SCH ×2 (10:32→21:13)
--- NOTE | 2018-09-29 11:41 | Progress Note ---
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 Had also generalized chronic chronic seizure and is trying to area associated with him post icterus. No fever no chills. Had excision of right-sided brain tumor in 2001. Has been only on Tegretol. My supervision was given loading dose of 1500 of Keppra. Admitted for further evaluation and management. - Status epilepticus Continue with IV Keppra and carbamazepine Seizure precaution Neurology consulted. 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 INR is therapeutic for now. Hold Lovenox continue with SCDs. Commence Pepcid - Discussed at length with pt daughter. - code status: full code - Disposition: per clinical course - Discusse with pt's daughter in th room. Pt commence on Miralax to address possible constipation Subjective Date of service: 09/29/18 Principal diagnosis: status epilepticus, hypertension, hyperlipidemia, acute kidney injury. Interval history: Patient seen and examined. More alert. Pt's daughter in the room. Concern about ppt's not having BM yet despite beign on elemental diet. No further seizure activity. Lying quietly in bed. NGT in place. Objective - Exam Narrative Exam: Constitutional:Well-nourished well-developed. In no distress. interactive but sleepy. Head: Normocephalic atraumatic Eyes: Pupils are equal round and reactive to light Nose: No enlarged turbinates, no septal deviation. Mouth: Moist mucous membranes. Neck: Supple no thyromegaly. No bruit. No JVD Heart: Regular rate and rhythm, S1-S2 normal. No rubs murmurs or gallop Lungs: Clear to auscultation bilaterally. no rales or rhonchi Abdomen: Soft, nontender. Bowel sound are present. Extremities: No edema, no cyanosis, no clubbing. Neuro: Alert oriented Oriented x1. No focal sensory or motor deficit. Skin: No rashes or hyperpigmented spots Musculoskeletal system: No joint pain or swelling Hematological: No petechia or subcutanous hemorrhages. Immunological: No multiple septic spots on the skin Lymphatic: No generalized lymphadenopathy Psychiatry: Euthymic. Calm. - Constitutional Vitals: Vital Signs - 12hr 09/28/18 09/29/18 09/29/18 23:40 05:23 10:29 Temperature 99.8 F H Pulse Rate 78 Respiratory 22 Rate Blood Pressure 155/56 O2 Sat by Pulse 100 94 97 Oximetry - Labs CBC & Chem 7: 09/30/18 09:00 09/30/18 09:00 Labs: Abnormal lab results 09/28/18 09/28/18 09/29/18 Range/Units 13:02 17:24 05:34 PT 15.6 H (12.2-14.9) Sec. INR 1.27 H (0.87-1.13) POC Glucose 145 H 172 H (70-105)
[2018-09-29] MEDS: LOVENOX SUB-Q SCH (21:13)
[2018-09-30] MEDS: D5NS 1,000 ML IV SCH (04:20)
[2018-09-30 09:57] LABS: Basophils % (Auto) 0.4 % (0.0-1.8); Eosinophils # (Auto) 0.1 K/mm3 (0.0-0.4); Eosinophils % (Auto) 2.8 % (0.0-4.3); Hematocrit 29.3 % (30.3-42.9); Lymphocytes # (Auto) 0.6 K/mm3 (1.2-5.4); Lymphocytes % (Auto) 13.1 % (13.4-35.0); Mean Corpuscular HGB Conc 34 % (30-34); Mean Corpuscular Volume 97 fl (79-97); Monocytes # (Auto) 0.5 K/mm3 (0.0-0.8); Monocytes % (Auto) 10.1 % (0.0-7.3); Platelet Count 164 K/mm3 (140-440); Red Blood Count 3.02 M/mm3 (3.65-5.03); Red Cell Distribution Width 13.5 % (13.2-15.2)
[2018-09-30] MEDS: PHOS-NAK PO SCH ×2 (09:57→21:08)
[2018-09-30] MEDS: NORVASC PO SCH (09:57)
[2018-09-30] MEDS: TYLENOL PO SCH ×2 (09:57→21:08)
[2018-09-30] MEDS: KEPPRA 1,000 MG in D5W 100 ML IV SCH ×2 (10:04→21:08)
[2018-09-30 10:10] LABS: INR 1.13 (0.87-1.13)
[2018-09-30 10:22] LABS: Alanine Aminotransferase 12 units/L (7-56); Albumin 2.6 g/dL (3.9-5); BUN/Creatinine Ratio 13; Blood Urea Nitrogen 12 mg/dL (7-17); Calcium 8.7 mg/dL (8.4-10.2); Hemolysis Index 8
--- NOTE | 2018-09-30 12:18 | Progress Note ---
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 Had also generalized chronic chronic seizure and is trying to area associated with him post icterus. No fever no chills. Had excision of right-sided brain tumor in 2001. Has been only on Tegretol. My supervision was given loading dose of 1500 of Keppra. Admitted for further evaluation and management. - Status Epilepticus Continue with IV Keppra and carbamazepine Seizure precaution Neurology consulted. Input appreciated - Oropharyngeal dysphagia Still has NGT in place For modified barium swallow tomorrow - Hypomagnesemia and hypophosphatemia Corrected - Hypertension - improving Continue with Amlodipine 10 mg. 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 INR is therapeutic for now. Hold Lovenox continue with SCDs. Commence Pepcid - Discussed at length with pt daughter. - code status: full code - Disposition: per clinical course - Discusse with pt's daughter in th room. Pt commence on Miralax to address possible constipation Subjective Date of service: 09/30/18 Principal diagnosis: status epilepticus, hypertension, hyperlipidemia, acute kidney injury. Interval history: Patient seen and examined. More alert. No further seizure activity. Lying quietly in bed. NGT in place. Objective - Exam Narrative Exam: Constitutional:Well-nourished well-developed. In no distress. Interactive and more alert. Head: Normocephalic atraumatic Eyes: Pupils are equal round and reactive to light Nose: No enlarged turbinates, no septal deviation. Mouth: Moist mucous membranes. Neck: Supple no thyromegaly. No bruit. No JVD Heart: Regular rate and rhythm, S1-S2 normal. No rubs murmurs or gallop Lungs: Clear to auscultation bilaterally. no rales or rhonchi Abdomen: Soft, nontender. Bowel sound are present. Extremities: No edema, no cyanosis, no clubbing. Neuro: Alert oriented Oriented x1. No focal sensory or motor deficit. Skin: No rashes or hyperpigmented spots Musculoskeletal system: No joint pain or swelling Hematological: No petechia or subcutanous hemorrhages. Immunological: No multiple septic spots on the skin Lymphatic: No generalized lymphadenopathy Psychiatry: Euthymic. Calm. - Constitutional Vitals: Vital Signs - 12hr 09/30/18 09/30/18 09/30/18 06:20 08:59 09:57 Temperature 98.7 F Pulse Rate 78 76 Respiratory 20 Rate Blood Pressure 150/64 150/64 O2 Sat by Pulse 100 99 Oximetry - Labs CBC & Chem 7: 09/30/18 09:00 09/30/18 09:00 Labs: Abnormal lab results 09/30/18 09/30/18 Range/Units 09:00 09:00 RBC 3.02 L (3.65-5.03) M/mm3 Hgb 10.0 L (10.1-14.3) gm/dl Hct 29.3 L (30.3-42.9) % MCH 33 H (28-32) pg Lymph % (Auto) 13.1 L (13.4-35.0) % [place] % (Auto) 10.1 H (0.0-7.3) % Lymph # 0.6 L (1.2-5.4) K/mm3 Seg Neutrophils % 73.6 H (40.0-70.0) % Chloride 107.9 H (98-107) mmol/L Glucose 145 H (65-100) mg/dL Phosphorus 2.20 L (2.5-4.5) mg/dL Magnesium 1.40 L (1.7-2.3) mg/dL Albumin 2.6 L (3.9-5) g/dL
[2018-09-30] MEDS: MIRALAX 3350 PO PRN (18:14)
[2018-09-30] MEDS: LOVENOX SUB-Q SCH (21:07)
[2018-10-01] MEDS: D5NS 1,000 ML IV SCH (02:58)
[2018-10-01 07:37] LABS: Basophils % (Auto) 0.5 % (0.0-1.8); Eosinophils # (Auto) 0.1 K/mm3 (0.0-0.4); Eosinophils % (Auto) 3.2 % (0.0-4.3); Hematocrit 29.4 % (30.3-42.9); Hemoglobin 9.8 gm/dl (10.1-14.3); Lymphocytes # (Auto) 0.6 K/mm3 (1.2-5.4); Lymphocytes % (Auto) 14.2 % (13.4-35.0); Mean Corpuscular HGB Conc 33 % (30-34); Mean Corpuscular Volume 97 fl (79-97); Monocytes # (Auto) 0.3 K/mm3 (0.0-0.8); Monocytes % (Auto) 8.1 % (0.0-7.3); Platelet Count 176 K/mm3 (140-440); Red Blood Count 3.03 M/mm3 (3.65-5.03)
[2018-10-01 07:46] LABS: INR 1.12 (0.87-1.13)
[2018-10-01 07:58] LABS: Alanine Aminotransferase 12 units/L (7-56); Albumin 2.5 g/dL (3.9-5); BUN/Creatinine Ratio 13; Blood Urea Nitrogen 12 mg/dL (7-17); Calcium 8.6 mg/dL (8.4-10.2); Hemolysis Index 2
[2018-10-01] MEDS: TYLENOL PO SCH ×2 (09:21→21:22)
[2018-10-01] MEDS: NORVASC PO SCH (09:22)
[2018-10-01] MEDS: PHOS-NAK PO SCH ×2 (09:25→21:23)
[2018-10-01] MEDS: KEPPRA 1,000 MG in D5W 100 ML IV SCH (09:27)
[2018-10-01] MEDS: MIRALAX 3350 PO PRN (09:39)
--- NOTE | 2018-10-01 09:42 | Progress Note ---
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 Had also generalized chronic chronic seizure and is trying to area associated with him post icterus. No fever no chills. Had excision of right-sided brain tumor in 2001. Has been only on Tegretol. My supervision was given loading dose of 1500 of Keppra. Admitted for further evaluation and management. - Status Epilepticus Continue with IV Keppra and carbamazepine Seizure precaution Neurology consulted. Input appreciated - Oropharyngeal dysphagia Still has NGT in place For modified barium swallow tomorrow cancelled as i discussed with speech who documented there is no aspiration but that she hold her food for prolonged time in her mouth which may increase risk for aspiration. I discussed with Pt's daughter, Marlene, suggesting trying pt on Puree diet as she is more alert vs placing a PEG tube. She agreed with trying her on Puree diet. - Hypomagnesemia and hypophosphatemia Corrected - Hypertension - improving Continue with Amlodipine 10 mg. 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 INR is therapeutic for now. Hold Lovenox continue with SCDs. Commence Pepcid - Discussed at length with pt daughter. - code status: full code - Disposition: per clinical course - Discussed with pt's daughter. Pt commence on Miralax to address possible constipation Subjective Date of service: 10/01/18 Principal diagnosis: status epilepticus, hypertension, hyperlipidemia, acute kidney injury. Interval history: Patient seen and examined. More alert. No further seizure activity. Lying quietly in bed. NGT still in place. Objective - Exam Narrative Exam: Constitutional:Well-nourished well-developed. In no distress. Interactive and more alert. Head: Normocephalic atraumatic Eyes: Pupils are equal round and reactive to light Nose: No enlarged turbinates, no septal deviation. Mouth: Moist mucous membranes. Neck: Supple no thyromegaly. No bruit. No JVD Heart: Regular rate and rhythm, S1-S2 normal. No rubs murmurs or gallop Lungs: Clear to auscultation bilaterally. no rales or rhonchi Abdomen: Soft, nontender. Bowel sound are present. Extremities: No edema, no cyanosis, no clubbing. Neuro: Alert oriented Oriented x1. No focal sensory or motor deficit. Skin: No rashes or hyperpigmented spots Musculoskeletal system: No joint pain or swelling Hematological: No petechia or subcutanous hemorrhages. Immunological: No multiple septic spots on the skin Lymphatic: No generalized lymphadenopathy Psychiatry: Euthymic. Calm. - Constitutional Vitals: Vital Signs - 12hr 09/30/18 09/30/18 10/01/18 22:23 22:46 05:25 Temperature 99.1 F 98.1 F Pulse Rate 69 70 74 Respiratory 20 20 Rate Blood Pressure 147/50 167/68 O2 Sat by Pulse 91 93 Oximetry 10/01/18 09:15 Temperature Pulse Rate Respiratory Rate Blood Pressure O2 Sat by Pulse 95 Oximetry - Labs CBC & Chem 7: 10/01/18 06:52 10/01/18 06:52 Labs: Abnormal lab results 09/27/18 09/30/18 09/30/18 Range/Units 15:00 09:00 09:00 WBC (4.5-11.0) K/mm3 RBC 3.02 L (3.65-5.03) M/mm3 Hgb 10.0 L (10.1-14.3) gm/dl Hct 29.3 L (30.3-42.9) % MCH 33 H (28-32) pg RDW (13.2-15.2) % Lymph % (Auto) 13.1 L (13.4-35.0) % Troup % (Auto) 10.1 H (0.0-7.3) % Lymph # 0.6 L (1.2-5.4) K/mm3 Seg Neutrophils % 73.6 H (40.0-70.0) % Chloride 107.9 H (98-107) mmol/L Glucose 145 H (65-100) mg/dL Phosphorus 2.20 L (2.5-4.5) mg/dL Magnesium 1.40 L (1.7-2.3) mg/dL Albumin 2.6 L (3.9-5) g/dL Levetiracetam 58.2 H (12.0-46.0) mcg/mL 10/01/18 10/01/18 Range/Units 06:52 06:52 WBC 4.1 L (4.5-11.0) K/mm3 RBC 3.03 L (3.65-5.03) M/mm3 Hgb 9.8 L (10.1-14.3) gm/dl Hct 29.4 L (30.3-42.9) % MCH (28-32) pg RDW 13.0 L (13.2-15.2) % Lymph % (Auto) (13.4-35.0) % Troup % (Auto) 8.1 H (0.0-7.3) % Lymph # 0.6 L (1.2-5.4) K/mm3 Seg Neutrophils % 74.0 H (40.0-70.0) % Chloride (98-107) mmol/L Glucose 171 H (65-100) mg/dL Phosphorus (2.5-4.5) mg/dL Magnesium (1.7-2.3) mg/dL Albumin 2.5 L (3.9-5) g/dL Levetiracetam (12.0-46.0) mcg/mL
[2018-10-01] MEDS: LOVENOX SUB-Q SCH (21:22)
[2018-10-01] MEDS: KEPPRA PO SCH (21:22)
[2018-10-01] MEDS ORDERED: BANOPHEN PO ONE (22:14)
[2018-10-02 05:52] LABS: Basophils % (Auto) 0.6 % (0.0-1.8); Eosinophils # (Auto) 0.2 K/mm3 (0.0-0.4); Eosinophils % (Auto) 3.3 % (0.0-4.3); Hematocrit 32.5 % (30.3-42.9); Lymphocytes # (Auto) 1.1 K/mm3 (1.2-5.4); Lymphocytes % (Auto) 22.1 % (13.4-35.0); Mean Corpuscular HGB Conc 34 % (30-34); Mean Corpuscular Volume 96 fl (79-97); Monocytes # (Auto) 0.4 K/mm3 (0.0-0.8); Monocytes % (Auto) 8.1 % (0.0-7.3); Platelet Count 202 K/mm3 (140-440); Red Blood Count 3.39 M/mm3 (3.65-5.03); Red Cell Distribution Width 13.1 % (13.2-15.2)
[2018-10-02 06:05] LABS: INR 1.18 (0.87-1.13)
[2018-10-02 06:15] LABS: Alanine Aminotransferase 15 units/L (7-56); BUN/Creatinine Ratio 13; Blood Urea Nitrogen 13 mg/dL (7-17); Calcium 9.5 mg/dL (8.4-10.2); Hemolysis Index 12
--- NOTE | 2018-10-02 09:14 | Discharge Summary ---
Providers - Providers Date of Admission: 09/24/18 11:13 Date of discharge: 10/02/18 Attending physician: BERNARDA BLANK 09/24/18 10:00 Speech Therapy Evaluation and Treat [CONS] Routine Reason For Exam: Failed swallow screen 09/25/18 16:50 Occupational Therapy Evaluate and Treat [CONS] Routine Comment: Reason For Exam: generalized weakness Physical Therapy Evaluation and Treat [CONS] Routine Comment: Reason For Exam: generalized weakness 09/26/18 11:17 Consult to Dietitian/Nutrition [CONS] Routine Physician Instructions: Reason For Exam: dobhoff Reason for Consult: Write/Manage Tube Feeding 09/26/18 15:14 Consult to Physician [CONS] Routine Comment: Consulting Provider: RENA GUZMAN Physician Instructions: Reason For Exam: seizures and prolonged post ictusn duration [facility] Reason for admission: status epilepticus Condition: Fair Pertinent studies: CT scan of the head that showed no acute intracranial process Chest associated showed mild cardiomegaly from hypertension Procedures: None Hospital course: Patient is an 88-year-old lady was admitted on 09/24/2018 for generalized tonic-clonic seizure while at the [facility]. Patient had a brain tumor removed in 2001 and a received a left-sided weakness since then. Patient was commenced on Ativan and loaded dose of Keppra. Was on carbamazepine and for anti-seizure medication prior to admission. CT scan of the head was unremarkable for any acute event. Neurology consult was obtained. Recommended patient to patient on Keppra and B6, 200 mg to prevent irritation from Keppra. On admission pt was found to have elevated blood pressure. This was optimized by adjusting her oral antihypertensive medication. Systolic is still in the 140s and 150s. Hypomagnesemia and hypophosphatemia were identified. These were corrected. Patient had dysphagia for wheeze and NG tube was placed. Speech therapy consulted for swallowing studies. Findings by the speech therapist was that patient did not have any aspiration. However she was pocketing food which makes her a high risk for aspiration. A G-tube was removed.. Was able to eat 70% of meals. However was the pocketing. The decision to continue with speech therapy or place a PEG tube were presented to the daughter who was agreed with me that it was at her to continue to feed her with all aspiration precautions and to continue withl speech therapy when discharged to senior care facility. She is therefore being discharged to senior care facility today to continue with anti-seizure medications, antihypertensive medication, and all aspiration precautions. Disposition: [id number]/[place]-[id number] SNF [facility] Time spent for discharge: 45 minutes - Discharge Diagnoses (1) Oropharyngeal dysphagia Status: Acute (2) Hypertension Status: Acute (3) Hyperlipidemia Status: Acute (4) Hypomagnesemia Status: Acute (5) Hypophosphatemia Status: Acute (6) Metabolic encephalopathy Status: Acute Core Measure Documentation - Palliative Care Palliative Care/ Comfort Measures: Not Applicable - Core Measures Any of the following diagnoses?: none Exam - Physical Exam Narrative exam: Constitutional:Well-nourished well-developed. Still pleasantly confused. In no distress. Interactive and more alert. Head: Normocephalic atraumatic Eyes: Pupils are equal round and reactive to light Nose: No enlarged turbinates, no septal deviation. Mouth: Moist mucous membranes. Neck: Supple no thyromegaly. No bruit. No JVD Heart: Regular rate and rhythm, S1-S2 normal. No rubs murmurs or gallop Lungs: Clear to auscultation bilaterally. no rales or rhonchi Abdomen: Soft, nontender. Bowel sound are present. Extremities: No edema, no cyanosis, no clubbing. Neuro: Alert oriented Oriented x2. No focal sensory or motor deficit. Skin: No rashes or hyperpigmented spots Musculoskeletal system: No joint pain or swelling Hematological: No petechia or subcutanous hemorrhages. Immunological: No multiple septic spots on the skin Lymphatic: No generalized lymphadenopathy Psychiatry: Euthymic. Calm. - Constitutional Vitals: Temp Pulse Resp BP Pulse Ox 98.0 F 76 20 154/61 96 10/02/18 04:54 10/02/18 04:54 10/02/18 04:54 10/02/18 04:54 10/02/18 04:54 Plan Activity: advance as tolerated, fall precautions, other (aspiration precaution) Weight Bearing Status: Non-Weight Bearing Diet: regular Follow up with: PALMA HAMM MD [Primary Care Provider] - 14 Days BERNARDA BLANK MD [Staff Physician] - 7 Days Forms: Warfarin Discharge Instruction Prescriptions: cloNIDine-TTS PATCH [Catapres-Tts 0.2mg Patch] 0.2 mg TD QWEEK #4 patch levETIRAcetam [Keppra] 1,000 mg PO BID #60 oral.liqd amLODIPine [Norvasc] 10 mg PO QDAY #30 tablet carBAMazepine [TEGretol] 200 mg PO BID #30 tablet
--- NOTE | 2018-10-02 09:24 | Event Note ---
Date: 10/02/18 Discharge to SNF whenever insurance authorizes and bed available
[2018-10-02] MEDS: NORVASC PO SCH (09:58)
[2018-10-02] MEDS: KEPPRA PO SCH ×2 (09:58→22:24)
[2018-10-02] MEDS: TYLENOL PO SCH ×2 (09:58→22:24)
[2018-10-02] MEDS: CATAPRES-TTS PATCH TD SCH (09:59)
[2018-10-02] MEDS: PHOS-NAK PO SCH ×2 (09:59→22:24)
[2018-10-02] MEDS: LOVENOX SUB-Q SCH (22:24)
--- NOTE | 2018-10-03 08:13 | Progress Note ---
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 Had also generalized chronic chronic seizure and is trying to area associated with him post icterus. No fever no chills. Had excision of right-sided brain tumor in 2001. Has been only on Tegretol. My supervision was given loading dose of 1500 of Keppra. Admitted for further evaluation and management. - Status Epilepticus Continue with IV Keppra and carbamazepine Seizure precaution Neurology consulted. Input appreciated - metabolic encephalopathy - likely post ictal improved. Pt is more interactive - Oropharyngeal dysphagia Still has NGT in place For modified barium swallow tomorrow cancelled as i discussed with speech who documented there is no aspiration but that she hold her food for prolonged time in her mouth which may increase risk for aspiration. I discussed with Pt's daughter, Marlene, suggesting trying pt on Puree diet as she is more alert vs placing a PEG tube. She agreed with trying her on Puree diet. Pt tolerating Puree diet - Hypomagnesemia and hypophosphatemia Corrected - Hypertension - improving Continue with Amlodipine 10 mg. 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 INR is therapeutic for now. Hold Lovenox continue with SCDs. Commence Pepcid - Discussed at length with pt daughter. - code status: full code - Disposition: Awaiting [facility] clinical course - Discussed with pt's daughter. Pt commence on Miralax to address possible constipation - Patient Problems (1) Oropharyngeal dysphagia Current Visit: Yes Status: Acute (2) Hypertension Current Visit: Yes Status: Acute (3) Hyperlipidemia Current Visit: Yes Status: Acute (4) Hypomagnesemia Current Visit: Yes Status: Acute (5) Hypophosphatemia Current Visit: Yes Status: Acute (6) Metabolic encephalopathy Current Visit: Yes Status: Acute Subjective Date of service: 10/03/18 Principal diagnosis: status epilepticus, hypertension, hyperlipidemia, acute kidney injury. Interval history: Patient seen and examined. More alert. No further seizure activity. Lying quietly in bed. Objective - Exam Narrative Exam: Constitutional:Well-nourished well-developed. Still pleasantly confused. In no distress. Interactive and more alert. Head: Normocephalic atraumatic Eyes: Pupils are equal round and reactive to light Nose: No enlarged turbinates, no septal deviation. Mouth: Moist mucous membranes. Neck: Supple no thyromegaly. No bruit. No JVD Heart: Regular rate and rhythm, S1-S2 normal. No rubs murmurs or gallop Lungs: Clear to auscultation bilaterally. no rales or rhonchi Abdomen: Soft, nontender. Bowel sound are present. Extremities: No edema, no cyanosis, no clubbing. Neuro: Alert oriented Oriented x2. No focal sensory or motor deficit. Skin: No rashes or hyperpigmented spots Musculoskeletal system: No joint pain or swelling Hematological: No petechia or subcutanous hemorrhages. Immunological: No multiple septic spots on the skin Lymphatic: No generalized lymphadenopathy Psychiatry: Euthymic. Calm. - Constitutional Vitals: Vital Signs - 12hr 10/02/18 10/03/18 10/03/18 23:25 00:35 05:51 Temperature 98.9 F 98.2 F Pulse Rate 72 64 65 Respiratory 18 18 20 Rate Blood Pressure 165/66 151/66 156/65 O2 Sat by Pulse 90 95 95 Oximetry - Labs CBC & Chem 7: 10/02/18 05:16 10/02/18 05:16
[2018-10-03 08:20] LABS: Albumin 2.7 g/dL (3.9-5); Calcium 9.6 mg/dL (8.4-10.2)
[2018-10-03] MEDS: PHOS-NAK PO SCH ×2 (10:03→21:57)
[2018-10-03] MEDS: TYLENOL PO SCH ×2 (10:03→21:56)
[2018-10-03] MEDS: NORVASC PO SCH (10:03)
[2018-10-03] MEDS: COZAAR PO SCH (10:03)
[2018-10-03] MEDS: KEPPRA PO SCH ×2 (10:03→21:57)
[2018-10-03] MEDS: LOVENOX SUB-Q SCH (21:57)
[2018-10-04] MEDS: COZAAR PO SCH (11:30)
[2018-10-04] MEDS: TYLENOL PO SCH ×2 (11:31→22:10)
[2018-10-04] MEDS: NORVASC PO SCH (11:32)
[2018-10-04] MEDS: KEPPRA PO SCH ×2 (11:33→22:10)
[2018-10-04] MEDS: PHOS-NAK PO SCH ×2 (11:34→22:10)
--- NOTE | 2018-10-04 20:31 | Progress Note ---
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 Had also generalized chronic chronic seizure and is trying to area associated with him post icterus. No fever no chills. Had excision of right-sided brain tumor in 2001. Has been only on Tegretol. My supervision was given loading dose of 1500 of Keppra. Admitted for further evaluation and management. - Status Epilepticus Continue with IV Keppra and carbamazepine Seizure precaution Neurology consulted. Input appreciated - metabolic encephalopathy - likely post ictal improved. Pt is more interactive - Oropharyngeal dysphagia Still has NGT in place For modified barium swallow tomorrow cancelled as i discussed with speech who documented there is no aspiration but that she hold her food for prolonged time in her mouth which may increase risk for aspiration. I discussed with Pt's daughter, Marlene, suggesting trying pt on Puree diet as she is more alert vs placing a PEG tube. She agreed with trying her on Puree diet. Pt tolerating Puree diet - Hypomagnesemia and hypophosphatemia Corrected - Hypertension - improving Continue with Amlodipine 10 mg. 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 INR is therapeutic for now. Hold Lovenox continue with SCDs. Commence Pepcid - Discussed at length with pt daughter. - code status: full code - Disposition: Awaiting [facility] clinical course Subjective Date of service: 10/04/18 Principal diagnosis: status epilepticus, hypertension, hyperlipidemia, acute kidney injury. Interval history: Improved Able to stand Cannot walk Objective - Constitutional Vitals: Vital Signs - 12hr 10/04/18 10/04/18 10:55 17:06 Temperature 98.7 F 98.8 F Pulse Rate 79 85 Respiratory 20 22 Rate Blood Pressure 157/65 165/76 O2 Sat by Pulse 94 93 Oximetry General appearance: Present: no acute distress, well-nourished - EENT Eyes: PERRL, EOM intact ENT: hearing intact, clear oral mucosa Ears: bilateral: normal - Neck Neck: supple, normal ROM - Respiratory Respiratory effort: normal Respiratory: bilateral: CTA - Breasts Breasts: normal - Cardiovascular Heart rate: 78 Rhythm: regular Heart Sounds: Present: S1 & S2. Absent: gallop, rub Extremities: pulses intact, No edema, normal color, Full ROM - Gastrointestinal General gastrointestinal: Present: soft, non-tender, non-distended, normal bowel sounds - Genitourinary Female genitourinary: normal - Integumentary Integumentary: clear, warm, dry - Musculoskeletal Musculoskeletal: 1, strength equal bilaterally - Neurologic Neurologic: moves all extremities - Psychiatric Psychiatric: memory intact, appropriate mood/affect, intact judgment & insight - Labs CBC & Chem 7: 10/02/18 05:16 10/03/18 06:59
[2018-10-04] MEDS: LOVENOX SUB-Q SCH (22:11)
[2018-10-05] MEDS: COZAAR PO SCH (09:22)
[2018-10-05] MEDS: NORVASC PO SCH (09:23)
[2018-10-05] MEDS: PHOS-NAK PO SCH ×2 (09:23→21:46)
[2018-10-05] MEDS: KEPPRA PO SCH ×2 (09:24→21:47)
[2018-10-05] MEDS: TYLENOL PO SCH ×2 (09:24→21:43)
[2018-10-05] MEDS: MIRALAX 3350 PO PRN (17:44)
[2018-10-05] MEDS: LOVENOX SUB-Q SCH (21:44)
[2018-10-06] MEDS: COZAAR PO SCH (10:42)
[2018-10-06] MEDS: PHOS-NAK PO SCH ×2 (10:42→22:00)
[2018-10-06] MEDS: KEPPRA PO SCH ×2 (10:43→21:59)
[2018-10-06] MEDS: TYLENOL PO SCH ×2 (10:43→22:00)
[2018-10-06] MEDS: NORVASC PO SCH (10:43)
[2018-10-06] MEDS: MIRALAX 3350 PO PRN (12:51)
--- NOTE | 2018-10-06 15:08 | Progress Note ---
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 Had also generalized chronic chronic seizure and is trying to area associated with him post icterus. No fever no chills. Had excision of right-sided brain tumor in 2001. Has been only on Tegretol. My supervision was given loading dose of 1500 of Keppra. Admitted for further evaluation and management. - Status Epilepticus Continue with IV Keppra and carbamazepine Seizure precaution Neurology consulted. Input appreciated - metabolic encephalopathy - likely post ictal improved. Pt is more interactive - Oropharyngeal dysphagia Still has NGT in place For modified barium swallow tomorrow cancelled as i discussed with speech who documented there is no aspiration but that she hold her food for prolonged time in her mouth which may increase risk for aspiration. I discussed with Pt's daughter, Marlene, suggesting trying pt on Puree diet as she is more alert vs placing a PEG tube. She agreed with trying her on Puree diet. Pt tolerating Puree diet - Hypomagnesemia and hypophosphatemia Corrected - Hypertension - improving Continue with Amlodipine 10 mg. 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 INR is therapeutic for now. Hold Lovenox continue with SCDs. Commence Pepcid - Discussed at length with pt daughter. - code status: full code - Disposition: Awaiting [facility] clinical course - Discussed with pt's daughter Subjective Date of service: 10/05/18 Principal diagnosis: status epilepticus, hypertension, hyperlipidemia, acute kidney injury. Interval history: Improved Able to stand Cannot walk Objective - Constitutional Vitals: Vital Signs - 12hr 10/06/18 10/06/18 06:34 11:49 Temperature 98.5 F 98.4 F Pulse Rate 84 75 Respiratory 18 16 Rate Blood Pressure 177/72 151/61 O2 Sat by Pulse 92 95 Oximetry General appearance: Present: no acute distress, well-nourished - EENT Eyes: PERRL, EOM intact ENT: hearing intact, clear oral mucosa Ears: bilateral: normal - Neck Neck: supple, normal ROM - Respiratory Respiratory effort: normal Respiratory: bilateral: CTA - Breasts Breasts: normal - Cardiovascular Rhythm: regular Heart Sounds: Present: S1 & S2. Absent: gallop, rub Extremities: pulses intact, No edema, normal color, Full ROM - Gastrointestinal General gastrointestinal: Present: soft, non-tender, non-distended, normal bowel sounds - Genitourinary Female genitourinary: normal - Integumentary Integumentary: clear, warm, dry - Musculoskeletal Musculoskeletal: 1, strength equal bilaterally - Neurologic Neurologic: moves all extremities - Psychiatric Psychiatric: memory intact, appropriate mood/affect, intact judgment & insight - Labs CBC & Chem 7: 10/02/18 05:16 10/03/18 06:59
--- NOTE | 2018-10-06 15:10 | Progress Note ---
Subjective Date of service: 10/06/18 Principal diagnosis: status epilepticus, hypertension, hyperlipidemia, acute kidney injury. Interval history: Improved Able to stand Cannot walk Objective - Constitutional Vitals: Vital Signs - 12hr 10/06/18 10/06/18 06:34 11:49 Temperature 98.5 F 98.4 F Pulse Rate 84 75 Respiratory 18 16 Rate Blood Pressure 177/72 151/61 O2 Sat by Pulse 92 95 Oximetry - Labs CBC & Chem 7: 10/02/18 05:16 10/03/18 06:59
[2018-10-06] MEDS: LOVENOX SUB-Q SCH (22:01)
[2018-10-07] MEDS: KEPPRA PO SCH ×2 (11:26→22:35)
[2018-10-07] MEDS: PHOS-NAK PO SCH ×2 (11:26→22:35)
[2018-10-07] MEDS: COZAAR PO SCH (11:27)
[2018-10-07] MEDS: TYLENOL PO SCH ×2 (11:27→22:35)
[2018-10-07] MEDS: NORVASC PO SCH (11:27)
[2018-10-07] MEDS: LOVENOX SUB-Q SCH (22:36)
[2018-10-07] MEDS ORDERED: RESTORIL PO PRN (22:39)
--- NOTE | 2018-10-08 08:15 | Progress Note ---
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 Had also generalized chronic chronic seizure and is trying to area associated with him post icterus. No fever no chills. Had excision of right-sided brain tumor in 2001. Has been only on Tegretol. My supervision was given loading dose of 1500 of Keppra. Admitted for further evaluation and management. - Status Epilepticus Continue with Keppra and carbamazepine Seizure precaution Neurology consulted. Input appreciated - metabolic encephalopathy - likely post ictal improved. Pt is more interactive - - Hypomagnesemia and hypophosphatemia Corrected - Hypertension - improving Continue with Amlodipine 10 mg. 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 INR is therapeutic for now. Hold Lovenox continue with SCDs. Commence Pepcid - Discussed at length with pt daughter. - code status: full code - Disposition: Awaiting SNF SNF denied by her insurance Appealed Today OOB to chair May go home with [facility] PT tomorrow Will defer to Primary Subjective Date of service: 10/07/18 Principal diagnosis: status epilepticus, hypertension, hyperlipidemia, acute kidney injury. Interval history: Improved Able to stand Cannot walk Objective - Constitutional Vitals: Vital Signs - 12hr 10/07/18 10/07/18 10/07/18 22:00 22:35 22:56 Temperature 98.1 F Pulse Rate 87 Respiratory 17 17 18 Rate Blood Pressure 160/57 O2 Sat by Pulse 93 Oximetry 10/07/18 10/08/18 23:35 04:55 Temperature 97.5 F L Pulse Rate 75 Respiratory 17 50 H Rate Blood Pressure 170/81 O2 Sat by Pulse 95 Oximetry General appearance: Present: no acute distress, well-nourished - EENT Eyes: PERRL, EOM intact ENT: hearing intact, clear oral mucosa Ears: bilateral: normal - Neck Neck: supple, normal ROM - Respiratory Respiratory effort: normal Respiratory: bilateral: CTA - Breasts Breasts: normal - Cardiovascular Heart rate: 88 Rhythm: regular Heart Sounds: Present: S1 & S2. Absent: gallop, rub Extremities: pulses intact, No edema, normal color, Full ROM - Gastrointestinal General gastrointestinal: Present: soft, non-tender, non-distended, normal bowel sounds - Genitourinary Female genitourinary: normal - Integumentary Integumentary: clear, warm, dry - Musculoskeletal Musculoskeletal: 1, strength equal bilaterally - Neurologic Neurologic: moves all extremities - Psychiatric Psychiatric: memory intact, appropriate mood/affect, intact judgment & insight - Labs CBC & Chem 7: 10/02/18 05:16 10/03/18 06:59
--- NOTE | 2018-10-08 09:20 | Progress Note ---
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 Had also generalized chronic chronic seizure and is trying to area associated with him post icterus. No fever no chills. Had excision of right-sided brain tumor in 2001. Has been only on Tegretol. My supervision was given loading dose of 1500 of Keppra. Admitted for further evaluation and management. - Status Epilepticus Continue with IV Keppra and carbamazepine Seizure precaution Neurology consulted. Input appreciated - metabolic encephalopathy - likely post ictal improved. Pt is more interactive - Oropharyngeal dysphagia Still has NGT in place For modified barium swallow tomorrow cancelled as i discussed with speech who documented there is no aspiration but that she hold her food for prolonged time in her mouth which may increase risk for aspiration. I discussed with Pt's daughter, Marlene, suggesting trying pt on Puree diet as she is more alert vs placing a PEG tube. She agreed with trying her on Puree diet. Pt tolerating Puree diet - Hypomagnesemia and hypophosphatemia Corrected - Hypertension - improving Continue with Amlodipine 10 mg. 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 INR is therapeutic for now. Hold Lovenox continue with SCDs. Commence Pepcid - Discussed at length with pt daughter. - code status: full code - Disposition: Awaiting SNF. SNF denied by her insurance. Appealed Today OOB to chair - Patient Problems (1) Oropharyngeal dysphagia Current Visit: Yes Status: Acute (2) Hypertension Current Visit: Yes Status: Acute (3) Hyperlipidemia Current Visit: Yes Status: Acute (4) Hypomagnesemia Current Visit: Yes Status: Acute (5) Hypophosphatemia Current Visit: Yes Status: Acute (6) Metabolic encephalopathy Current Visit: Yes Status: Acute Subjective Date of service: 10/08/18 Principal diagnosis: status epilepticus, hypertension, hyperlipidemia, acute kidney injury. Interval history: Patient seen and examined. More alert. No further seizure activity. Lying quietly in bed. Awaiting placement Objective - Exam Narrative Exam: Constitutional:Well-nourished well-developed. Still pleasantly confused. In no distress. Interactive and more alert. Head: Normocephalic atraumatic Eyes: Pupils are equal round and reactive to light Nose: No enlarged turbinates, no septal deviation. Mouth: Moist mucous membranes. Neck: Supple no thyromegaly. No bruit. No JVD Heart: Regular rate and rhythm, S1-S2 normal. No rubs murmurs or gallop Lungs: Clear to auscultation bilaterally. no rales or rhonchi Abdomen: Soft, nontender. Bowel sound are present. Extremities: No edema, no cyanosis, no clubbing. Neuro: Alert oriented Oriented x2. No focal sensory or motor deficit. Skin: No rashes or hyperpigmented spots Musculoskeletal system: No joint pain or swelling Hematological: No petechia or subcutanous hemorrhages. Immunological: No multiple septic spots on the skin Lymphatic: No generalized lymphadenopathy Psychiatry: Euthymic. Calm. - Constitutional Vitals: Vital Signs - 12hr 10/07/18 10/07/18 10/07/18 22:00 22:35 22:56 Temperature 98.1 F Pulse Rate 87 Respiratory 17 17 18 Rate Blood Pressure 160/57 O2 Sat by Pulse 93 Oximetry 10/07/18 10/08/18 23:35 04:55 Temperature 97.5 F L Pulse Rate 75 Respiratory 17 50 H Rate Blood Pressure 170/81 O2 Sat by Pulse 95 Oximetry - Labs CBC & Chem 7: 10/02/18 05:16 10/03/18 06:59
[2018-10-08 10:00] LABS: Calcium 10.1 mg/dL (8.4-10.2)
[2018-10-08] MEDS: PHOS-NAK PO SCH ×2 (10:34→23:41)
[2018-10-08] MEDS: TYLENOL PO SCH ×2 (10:35→23:41)
[2018-10-08] MEDS: COZAAR PO SCH (10:35)
[2018-10-08] MEDS: KEPPRA PO SCH ×2 (10:41→23:42)
[2018-10-08] MEDS: NORVASC PO SCH (10:41)
[2018-10-08] MEDS: LOVENOX SUB-Q SCH (23:41)
--- NOTE | 2018-10-09 08:56 | Progress Note ---
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 Had also generalized chronic chronic seizure and is trying to area associated with him post icterus. No fever no chills. Had excision of right-sided brain tumor in 2001. Has been only on Tegretol. My supervision was given loading dose of 1500 of Keppra. Admitted for further evaluation and management. - Status Epilepticus Continue with IV Keppra and carbamazepine Seizure precaution Neurology consulted. Input appreciated - metabolic encephalopathy - likely post ictal- resolved improved. Pt is more interactive - Oropharyngeal dysphagia imporved For modified barium swallow tomorrow cancelled as i discussed with speech who documented there is no aspiration but that she hold her food for prolonged time in her mouth which may increase risk for aspiration. I discussed with Pt's daughter, Marlene, suggesting trying pt on Puree diet as she is more alert vs placing a PEG tube. She agreed with trying her on Puree diet. Pt tolerating Puree diet - Hypomagnesemia and hypophosphatemia Corrected - Debilitation from senility and multiple medicla problems Continue PT and rehab placement with PT capability - Hypertension - improving Continue with Amlodipine 10 mg. 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 Continue with Lovenox abnd SCDs. continue with Pepcid - code status: full code - Disposition: Awaiting SNF. SNF denied by her insurance. Appealed Today OOB to chair - Patient Problems (1) Oropharyngeal dysphagia Current Visit: Yes Status: Acute (2) Hypertension Current Visit: Yes Status: Acute (3) Hyperlipidemia Current Visit: Yes Status: Acute (4) Hypomagnesemia Current Visit: Yes Status: Acute (5) Hypophosphatemia Current Visit: Yes Status: Acute (6) Metabolic encephalopathy Current Visit: Yes Status: Acute Subjective Date of service: 10/09/18 Principal diagnosis: status epilepticus, hypertension, hyperlipidemia, acute kidney injury. Interval history: Patient seen and examined. More alert. No further seizure activity. Lying quietly in bed. Awaiting placement Objective - Exam Narrative Exam: Constitutional:Well-nourished well-developed. Still pleasantly confused. In no distress. Interactive and more alert. Head: Normocephalic atraumatic Eyes: Pupils are equal round and reactive to light Nose: No enlarged turbinates, no septal deviation. Mouth: Moist mucous membranes. Neck: Supple no thyromegaly. No bruit. No JVD Heart: Regular rate and rhythm, S1-S2 normal. No rubs murmurs or gallop Lungs: Clear to auscultation bilaterally. no rales or rhonchi Abdomen: Soft, nontender. Bowel sound are present. Extremities: No edema, no cyanosis, no clubbing. Neuro: Alert oriented Oriented x2. No focal sensory or motor deficit. Skin: No rashes or hyperpigmented spots Musculoskeletal system: No joint pain or swelling Hematological: No petechia or subcutanous hemorrhages. Immunological: No multiple septic spots on the skin Lymphatic: No generalized lymphadenopathy Psychiatry: Euthymic. Calm. - Constitutional Vitals: Vital Signs - 12hr 10/08/18 10/09/18 23:52 06:22 Temperature 98.0 F 98.0 F Pulse Rate 83 86 Respiratory 18 20 Rate Blood Pressure 161/57 165/87 O2 Sat by Pulse 90 95 Oximetry - Labs CBC & Chem 7: 10/02/18 05:16 10/08/18 09:22
[2018-10-09] MEDS: PHOS-NAK PO SCH (10:35)
[2018-10-09] MEDS: KEPPRA PO SCH (10:35)
[2018-10-09] MEDS: NORVASC PO SCH (10:36)
[2018-10-09] MEDS: COZAAR PO SCH (10:37)
[2018-10-09] MEDS: TYLENOL PO SCH (10:37)
[2018-10-09] MEDS: CATAPRES-TTS PATCH TD SCH (10:38)
[2018-10-09 12:16] VITALS: BP 156/49
--- NOTE | 2018-10-09 15:33 | Event Note ---
Date: 10/09/18
--- NOTE | 2018-10-09 15:52 | Event Note ---
Date: 10/09/18 Pt said to have vomited one with with questionable brown vomitus. The nurses did not see it. vital sign have been stable. Will check start CBC. Discussed with pt's daughter who said that her brought who is a nurse had requested for a CBC and CXR. However since pt vital signs are stable with no shortness of breath and has been under aspiration precaution, lungs were clear on examination thereafter, no aspiration was suspected. Pt will be discharged to SNF after CBC an if unremarkable to f/u with PCP in 5-7 days.
[2018-10-09 16:19] LABS: Basophils % (Auto) 0.9 % (0.0-1.8); Eosinophils # (Auto) 0.1 K/mm3 (0.0-0.4); Eosinophils % (Auto) 2.2 % (0.0-4.3); Hematocrit 33.3 % (30.3-42.9); Hemoglobin 11.3 gm/dl (10.1-14.3); Lymphocytes # (Auto) 0.9 K/mm3 (1.2-5.4); Lymphocytes % (Auto) 20.1 % (13.4-35.0); Mean Corpuscular HGB Conc 34 % (30-34); Mean Corpuscular Volume 95 fl (79-97); Monocytes # (Auto) 0.4 K/mm3 (0.0-0.8); Monocytes % (Auto) 8.4 % (0.0-7.3); Platelet Count 359 K/mm3 (140-440); Red Blood Count 3.49 M/mm3 (3.65-5.03); Red Cell Distribution Width 13.5 % (13.2-15.2)
== END 2018-10-09 18:20 | DRG 100 ==
LOC: EDBD 10:03 → ED 10:03 → CC1 11:13 → 3A 16:35
PROVIDERS: ADMIT Internal Medicine; ATTEND Family Medicine
DX: G40.201 Localization-related (focal) (partial) symptomatic epilepsy and epileptic syndromes with complex partial seizures, not intractable, with status epilepticus (principal); N17.0 Acute kidney failure with tubular necrosis; I69.351 Hemiplegia and hemiparesis following cerebral infarction affecting right dominant side; R13.12 Dysphagia, oropharyngeal phase; E83.39 Other disorders of phosphorus metabolism; E78.5 Hyperlipidemia, unspecified; I10 Essential (primary) hypertension; E83.42 Hypomagnesemia; G83.84 Todd's paralysis (postepileptic); Z79.01 Long term (current) use of anticoagulants; Z95.828 Presence of other vascular implants and grafts
CPT/HCPCS: 36415; 70450; 71045; 74018; 80048; 80053; 80177; 81001; 82962; 83735; 84100; 84484; 85025; 85610; 85670; 85730; 93005; 93010; 94760; G0378; J0360; J1170; J1650; J1953; J2060; J2997; J3475; J7030; J7042; Q0163